=== PATIENT | male | born 1950 | race Caucasian/White ===

== ENCOUNTER 2017-12-09 11:35 | Emergency (ER) | payer BC ==
[~2017-12-09] VITALS: Ht 195.6 cm; Wt 117.9 kg
[2017-12-09] MEDS ORDERED: METOPROLOL TART25 MG PO (11:45)
[2017-12-09] MEDS ORDERED: ATORVASTATIN CA40 MG PO (11:46)
[2017-12-09] MEDS ORDERED: LEVEMIR FL100 UNIT/2 SUB-Q (11:46)
== END 2017-12-09 13:21 | disposition home or self-care (01) ==
LOC: ED 11:35
PROC: 2W3CX1Z Immobilization of Right Lower Arm using Splint (ICD-10-PCS; principal; 2017-12-09)
DX: S62.001A Unspecified fracture of navicular [scaphoid] bone of right wrist, initial encounter for closed fracture (principal); E11.9 Type 2 diabetes mellitus without complications; Z79.4 Long term (current) use of insulin; Z79.899 Other long term (current) drug therapy; W17.89XA Other fall from one level to another, initial encounter
CPT/HCPCS: 29125; 73110; 73130; 99283